=== PATIENT | female | born 1965 | race Caucasian/White ===

== ENCOUNTER 2025-07-07 08:29 | Outpatient (AMB) | payer MEDICAID, SELFPAY ==
--- NOTE | 2025-07-07 08:38 | ORTHONT_ITS ---
Vital signs 07/07/25 08:46 Height 1.55 m Height Method Measured Weight 73.255 kg Weight Measurement Method Standing Scale BMI 30.5 BP 110/73 Blood Pressure Source Automatic Cuff Blood Pressure Location Right Upper Arm Position Sitting Respiration 20 Pulse 73 Pulse Source Monitor Temp 97.6 F Temp Source Temporal Artery Scan Pulse Oximetry (%) 95 Oxygen Delivery Method Room Air Med/Allergies Allergies & Medications Allergies NKA* Allergy (Uncoded 07/07/25 08:47) Medication Reconciliation Trazodone Hcl 100 mg PO HS ##0 10/13/12 [History Confirmed 07/07/25] atorvastatin 40 mg tablet 40 mg PO QDAY 07/07/25 [History Confirmed 07/07/25] cariprazine 3 mg capsule (Vraylar) 3 mg PO QDAY 07/07/25 [History Confirmed 07/07/25] cyclobenzaprine 5 mg tablet 5 mg PO QHS 07/07/25 [History Confirmed 07/07/25] gabapentin 600 mg tablet 600 mg PO BID 07/07/25 [History Confirmed 07/07/25] ibuprofen 800 mg tablet 800 mg PO TID 07/07/25 [History Confirmed 07/07/25] lorazepam 1 mg tablet (Ativan) 1 mg PO BID PRN 07/07/25 [History Confirmed 07/07/25] Exam Exam Patient is in no acute distress and is cooperative with the examination today. Breathing is nonlabored. In no respiratory distress. Patient has no paraspinal tenderness. Spinal deformity cannot be appreciated. The gait of the patient is nonantalgic Bilateral extremities were evaluated and demonstrates sensation intact to light touch. Palpable pedal pulses are present. No significant edema is present. Bilateral knees were examined and the patient has full strength and range of motion.. The right hip was examined. Patient was able to flex to 90 degrees, adduct to 30 degrees, abduct to 40 degrees, internally rotate to 20 degrees, and externally rotate to 20 degrees. Patient has a negative logroll. Stinchfield is negative. The patient is nontender diffusely to touch. The left hip was examined. Patient was able to flex to 90 degrees, adduct to 30 degrees, abduct to 40 degrees, internally rotate to 20 degrees, and externally rotate to 20 degrees. Patient has a negative logroll. The stinchfield is negative. Assessment and Plan Problem List (1) Bilateral hip pain: Status: Acute Plan: Patient is a pleasant 60-year-old female with bilateral hip pain and bilateral hip arthritis status post right total hip replacement. She has persistent pain. We will get x-rays to see the current state of her hips. She has persistent pain in her back and thigh. She reports that when she is doing the grocery store she has significant relief of pain with a shopping cart and leaning forward. I do suspect she has spinal stenosis. Will order an MRI (2) Spinal stenosis: Status: Acute Office Procedures GNS Level of Care Nursing/Assessment Patient Status: Initial/New Patient Nursing Assessment/Reassesment: Medication Reconciliation, Orthostatic Vitals and Update PMH in EMR Coordination of Care: Complex Care and Chronic Disease 1-5, Education Complex Pt/Fam, Consent,records obtained, informed consent, Lab and Imaging orders, Results/Orders obtained and Staff clarify orders New Patient Charge New Patient Point Assignment: [id number] New Patient Point Charge: TACTICAL INTELLIGENCE OFFICER Level 3 (9002-4013) MA Intake Visit Data Collection New Patient or Established: New Patient (never been to [facility]) Reason for Visit:: OSTEOARTHRITIS LEFT HIP PAIN Seen by Clinical Staff ONLY (RN/MA): No Tractor Sweeper Driver Required: No PCP or OBGYN visit in last 3 months: Yes Hx Now: No Do You Feel Safe at Home: Yes Authorities Contacted: N/A Questionairres Past Medical History Past Medical History Have you ever been diagnosed with any of the following: Other Problems Blood Transfusions: No Subjective Visit Visit for: new patient and hip Immunization / Flu Flu Vaccine in the Last 12 Months: Yes Flu Vaccine Exclusion Criteria: Already Received History of Present Illness Chief complaint: OSTEOARTHRITIS LEFT HIP PAIN Date of injury / onset of symptoms: 10/2023 Patient is a pleasant 52-year-old female with bilateral hip pain. She had a right total hip replacement done 2 years ago in [place]. She reports she still has continued pain. She has not tried any conservative treatment. She is difficulty putting on socks and shoes. There is some pain on the lateral aspect of her hip on both sides Personal History Occupation: DISABLED Red flag PMH: none BMI Counceling provided: Yes Pain Pain level (0-10): 7 Pain location: buttock Pain quality: sharp, dull, aching, burning and tingling Pain timing: stairs Associated signs & symptoms: none Ambulatory data Ambulatory device: walker Walking distance (minutes): 10 Treatments Number of previous injections: 0 Improvement with previous injections: No Number of Physical Therapy sessions: 0 Improvement with PT: No Improvement with NSAIDS: yes Review of Systems Review of Systems: All systems negative unless otherwise noted in HPI.
[2025-07-07 08:46] VITALS: BP 110/73; PULSE 73; RESP 20; TEMP 36.4; O2SAT 95; BMI 30.5
--- NOTE | 2025-07-07 08:55 | XR_ITS ---
Examination: Bilateral hips, AP pelvis, 5 views Technique: AP, lateral views both hips, AP pelvis, 5 views Exam date and time: July 07, 2025 0912 hours INDICATIONS: Right hip pain one year FINDINGS: Total right hip arthroplasty. Satisfactory alignment Moderate left hip osteoarthritis No hip or pelvic fracture IMPRESSION: Total right hip arthroplasty with satisfactory alignment Moderate left hip osteoarthritis
== END 2025-07-07 09:30 | disposition home or self-care (01) ==
LOC: HODSRG 08:29
PROVIDERS: PCP Physician Assistant Medical; Referring Provider Physician Assistant Medical; Supervising Provider Orthopaedic Surgery Adult Reconstructive Orthopaedic Surgery; Visit Provider Orthopaedic Surgery Adult Reconstructive Orthopaedic Surgery
DX: M25.552 Pain in left hip (principal); M25.551 Pain in right hip; M16.0 Bilateral primary osteoarthritis of hip; Z96.641 Presence of right artificial hip joint; M48.00 Spinal stenosis, site unspecified
CPT/HCPCS: 73522; 99203; G0463

== ENCOUNTER → 2025-08-29 | Outpatient (CLI) | payer MEDICAID, SELFPAY ==
--- NOTE | 2025-08-29 09:00 | XR_ITS ---
Examination: MRI lumbar spine without contrast Date and time of exam: August 29, 2025, 10:11 AM, comparison June 24, 2013 INDICATIONS: Low back pain 7 years radiating to the legs with numbness in the toes Technique: Multiple MRI axial and sagittal sections lumbar spine. Sagittal T2-weighted images, TR 3500, TE 118 T1 weighted transverse sections, TR 688 T8.5, T2-weighted sagittal sections T1 weighted sagittal sections TR 621, TE 30 T2 axial sections, TR 4, 190, TE 84. Findings: Adequate alignment lumbar vertebral bodies on the lateral view No lumbar fracture. Normal marrow signal lumbar vertebral bodies. Diffuse lumbar disc desiccation No spondylolisthesis L5-S1 no disc protrusion L4-L5 3 mm left foraminal disc bulges no ganglionic compression L3-L4 no disc protrusion L2-L3 no disc protrusion L1-L2 no disc protrusion IMPRESSION: No lumbar fracture or significant lumbar disc narrowing No significant acquired spinal stenosis
== END | disposition home or self-care (01) ==
PROVIDERS: PCP Physician Assistant Medical; Referring Provider Orthopaedic Surgery Adult Reconstructive Orthopaedic Surgery; Visit Provider Orthopaedic Surgery Adult Reconstructive Orthopaedic Surgery
DX: M48.00 Spinal stenosis, site unspecified (principal)
CPT/HCPCS: 72148

== ENCOUNTER → 2025-09-08 | Outpatient (CLI) | payer MEDICAID, SELFPAY ==
--- NOTE | 2025-09-08 07:30 | XR_ITS ---
Examination: MRI brain without intravenous contrast. Date and time of exam: September 08, 2025, 0713 hours, comparison April 30, 2012 INDICATIONS: Increasing memory loss 1 year, amnesia Technique: Multiple axial and sagittal images of the brain obtained. Siemens high-resolution 1.5 Breanne short bore scanners utilized. Sagittal sections, T1-weighted, TR 500, TE 14, are performed. Axial sections proton-density and T2-weighted have been obtained. Inversion recovery axial images, TR 9, 260, TE 111, TI 2500. Diffusion weighted images, axial sections, TR 4800, TE 128, B value 1000 Axial sections, ADC map, TR 4800, TE 128 Findings: Enlargement of the sella turcica is not present. The optic chiasm and infundibular are not remarkable. Prepontine and interpeduncular cisterns are not enlarged. There is no localized enlargement of the medulla or umer. Fourth ventricle and cerebellar tonsils appear normal in position. No subacute area of hemorrhage density is seen. Mass in the cerebellopontine angle region is not evident. Globes symmetrical. Orbital musculature including medial lateral rectus muscles do not exhibit abnormality. Diffusion-weighted images demonstrate no focus of restricted diffusion. Increased white matter signal is present, multiple punctate foci increased signal in the cerebral white matter Bilateral mild mastoiditis Mass effect upon the ventricular system is not identified. Impression: Negative for acute hemorrhage, mass effect or midline shift No acute infarct Scattered punctate foci of increased signal in the white matter, differential would include accelerated chronic microvascular white matter change, demyelinating disease, clinical correlation advised Bilateral mastoiditis
== END | disposition home or self-care (01) ==
LOC: SMRI 06:54
PROVIDERS: Referring Provider Physician Assistant Medical; Visit Provider Physician Assistant Medical
DX: G93.9 Disorder of brain, unspecified (principal); H70.93 Unspecified mastoiditis, bilateral
CPT/HCPCS: 70551

== ENCOUNTER 2025-11-10 10:15 | Outpatient (AMB) | payer MEDICAID, SELFPAY ==
--- NOTE | 2025-11-10 10:37 | PD.ORTHCLVIS ---
Vital signs 11/10/25 10:38 Height 1.55 m Height Method Measured Weight 72.603 kg Weight Measurement Method Standing Scale BMI 30.2 BP 126/80 Blood Pressure Source Automatic Cuff Blood Pressure Location Left Upper Arm Position Sitting Respiration 19 Pulse 65 Pulse Source Monitor Temp 97.3 F Temp Source Temporal Artery Scan Pulse Oximetry (%) 95 Oxygen Delivery Method Room Air Med/Allergies Allergies & Medications Allergies NKA* Allergy (Uncoded 11/10/25 10:38) Medication Reconciliation Trazodone Hcl 100 mg PO HS ##0 10/13/12 [History Confirmed 11/10/25] atorvastatin 40 mg tablet 40 mg PO QDAY 07/07/25 [History Confirmed 11/10/25] cariprazine 3 mg capsule (Vraylar) 3 mg PO QDAY 07/07/25 [History Confirmed 11/10/25] cyclobenzaprine 5 mg tablet 5 mg PO QHS 07/07/25 [History Confirmed 11/10/25] gabapentin 600 mg tablet 600 mg PO BID 07/07/25 [History Confirmed 11/10/25] ibuprofen 800 mg tablet 800 mg PO TID 07/07/25 [History Confirmed 11/10/25] lorazepam 1 mg tablet (Ativan) 1 mg PO BID PRN 07/07/25 [History Confirmed 11/10/25] Exam Exam Patient is in no acute distress and is cooperative with the examination today. Breathing is nonlabored. In no respiratory distress. Patient has no paraspinal tenderness. Spinal deformity cannot be appreciated. The gait of the patient is nonantalgic Bilateral extremities were evaluated and demonstrates sensation intact to light touch. Palpable pedal pulses are present. No significant edema is present. Bilateral knees were examined and the patient has full strength and range of motion.. The right hip was examined. Patient was able to flex to 90 degrees, adduct to 30 degrees, abduct to 40 degrees, internally rotate to 20 degrees, and externally rotate to 20 degrees. Patient has a negative logroll. Stinchfield is negative. The patient is nontender diffusely to touch. The left hip was examined. Patient was able to flex to 90 degrees, adduct to 30 degrees, abduct to 40 degrees, internally rotate to 20 degrees, and externally rotate to 20 degrees. Patient has a negative logroll. The stinchfield is negative. MRI demonstrates minimal spinal stenosis. She also has a left hip x-ray that demonstrates moderate to severe arthritis of the left hip Assessment and Plan Problem List (1) Bilateral hip pain: Status: Acute Plan: Patient is a pleasant 60-year-old female with bilateral hip pain and bilateral hip arthritis status post right total hip replacement. She has persistent pain. X-rays demonstrate left hip arthritis of significant severity. She would like to start with conservative treatment and would like a cortisone injection of her left hip We will order a left hip intra-articular cortisone injection (2) Spinal stenosis: Status: Acute Office Procedures GNS Level of Care Nursing/Assessment Patient Status: Established Patient Nursing Assessment/Reassesment: Medication Reconciliation, Update PMH in EMR and Vital Signs Coordination of Care: Complex Care and Chronic Disease 1-5, Education Complex Pt/Fam, Consent,records obtained, informed consent, Results/Orders obtained and Staff clarify orders Established Patient Charge Established Patient Point Assignment: 95 Established Patient Point Charge: Level 3 (80-115) MA Intake Visit Data Collection Reason for Visit:: OSTEOARTHRITIS LEFT HIP PAIN Seen by Clinical Staff ONLY (RN/MA): No Associate Accountant Required: No PCP or OBGYN visit in last 3 months: Yes Hx Now: No Do You Feel Safe at Home: Yes Authorities Contacted: N/A Questionairres Past Medical History Past Medical History Have you ever been diagnosed with any of the following: Neurological Problems Cerebrovascular Accident (CVA): No Transient Ischemic Attacks (TIA): No Dementia: No Alzheimer's Disease: No Parkinson's Disease: No Brain Tumor: No Meningitis: No Seizures: No Epilepsy: No Multiple Sclerosis: No Cerebral Palsy: No Amyotrophic Lateral Sclerosis (ALS/Liliya Gehrig's): No Guillain-Greenvale Syndrome: No Spina Bifida: No Paralysis: No Peripheral Neuropathy: No Nina's Palsy: No Subdural Hematoma: No Migraine: No Head Trauma: No Spinal Cord Injury: No Traumatic Brain Injury: No Cardiology Problems Myocardial Infarction: No Cardiac Arrhythmia: No Atrial Fibrillation: No Angina: No Heart Murmur: No Coronary Artery Disease: No Atherosclerotic Heart Disease: No Peripheral Vascular Disease: No Hypercholesterolemia: No Aneurysm: No Congestive Heart Failure: No Congenital Heart Disease: No Valvular Heart Disease: No Rheumatic Fever: No Cardiomyopathy: No Edema: No Pericarditis: No Cellulitis: No Deep Vein Thrombosis: No Hypertension: No Hypotension: No Varicose Veins: No Respiratory Problems Chronic Obstructive Pulmonary Disease (COPD): No Asthma: No Bronchitis: No Emphysema: No Pneumonia: No Pulmonary Fibrosis: No Tuberculosis: No Pulmonary Embolism: No Pulmonary Edema: No Sleep Apnea: No CPAP Dependent: No Respiratory Aspiration: No Dyspnea: No Orthopnea: No Hx Cough: No Cough: No Wheezing: No Chest Deformities: No Smoking: No Smoking Cessation Counseling: No Smoking Exposure: No Tobacco Use: No Clubbing: No Exposure to Respiratory Irritants: No Intubation: No Stomache/Intestinal Problems Liver Cancer: No Hepatitis: No Cirrhosis: No Pancreatic Cancer: No Pancreatitis: No Celiac Disease: No Gall Bladder Disease: No Gastrointestinal Bleed: No Esophageal Varices: No Saucedo's Esophagus: No Colitis: No Ulcerative Colitis: No Diverticulitis: No Diverticulosis: No Ulcer: No Colorectal Cancer: No Irritable Bowel: No Crohn's Disease: No Obstructive Bowel: No Hiatal Hernia: No Hemorrhoids: No Gastroesophageal Reflux Disease: No Polyps: No Obesity: No Genital/Urinary Problems Chronic Kidney Disease: No Renal Disease: No Kidney Stones: No Polycystic Kidney Disease: No Neurogenic Bladder: No Inguinal Hernia: No Dialysis: No Reproductive Problems Breast Cancer: No Endometriosis: No Fibroids: No Genital Herpes: No Gonorrhea: No Pelvic Inflammatory Disease: No Polycystic Ovarian Syndrome: No Previous Pregnancies: No Syphilis: No Uterine Prolapse: No Musculoskeletal Problems Muscular Dystrophy: No Myasthenia Gravis: No Marfan's Syndrome: No Bone Cancer: No Arthritis: No Rheumatoid Arthritis: No Osteoporosis: No Degenerative Disk Disease: No Gout: No Scoliosis: No Carpal Tunnel Syndrome: No Fibromyalgia: No Fractures: No Degenerative Joint Disease: No Osteomyelitis: No Poliovirus: No Head,Eye,Nose,Throat Problems Cataracts: No Glaucoma: No Blind: No Retinal Detachment: No Macular Degeneration: No Chronic Ear Infections: No Deafness: No Eye Prosthesis: No Endocrine Problems Diabetes Mellitus Type 1: No Diabetes Mellitus Type 2: No Hypoglycemia: No Joe's Syndrome: No Carlton's Disease: No Hyperthyroidism: No Hypothyroidism: No Thyroid Cancer: No Parathyroid Disease: No Pituitary Disease: No Systemic Lupus Erythematosus: No Syndrome of Inappropriate Antidiuretic Hormone: No Adrenal Disease: No Graves' Disease: No Blood Problems Anemia: No Leukemia: No Hemophilia: No Thalassemia: No Sickle Cell Disease: No Clotting Problems: No Psychologic Problems Schizophrenia: No Recreational Drug Use: No Bipolar Disorder: No Depression: No Anxiety: No Behavior Problems: No Self-Mutilation: No Attention Deficit Disorder: No Attention Deficit Hyperactivity Disorder: No Depression: No Post Traumatic Stress Disorder: No Eating Disorder: No Other Problems Blood Transfusions: No Subjective Visit Visit for: follow up visit and MRI (RESULTS) Immunization / Flu Flu Vaccine in the Last 12 Months: Yes Flu Vaccine Exclusion Criteria: Already Received History of Present Illness Chief complaint: OSTEOARTHRITIS LEFT HIP PAIN Date of injury / onset of symptoms: 10/2023 Patient is a pleasant 52-year-old female with bilateral hip pain. She had a right total hip replacement done 2 years ago in [place]. She reports she still has continued pain. She has not tried any conservative treatment. She is difficulty putting on socks and shoes. she is having groin pain on the left side. Personal History Occupation: DISABLED Red flag PMH: none BMI Counceling provided: Yes Pain Pain level (0-10): 7 Pain location: buttock Pain quality: sharp, dull, aching, burning and tingling Pain timing: stairs Associated signs & symptoms: none Ambulatory data Ambulatory device: walker Walking distance (minutes): 10 Treatments Number of previous injections: 0 Improvement with previous injections: No Number of Physical Therapy sessions: 0 Improvement with PT: No Improvement with NSAIDS: yes Review of Systems Review of Systems: All systems negative unless otherwise noted in HPI.
[2025-11-10 10:38] VITALS: BP 126/80; PULSE 65; RESP 19; TEMP 36.3; O2SAT 95; BMI 30.2
== END 2025-11-10 10:52 | disposition home or self-care (01) ==
LOC: HODSRG 10:15
PROVIDERS: Supervising Provider Orthopaedic Surgery Adult Reconstructive Orthopaedic Surgery; Visit Provider Orthopaedic Surgery Adult Reconstructive Orthopaedic Surgery
DX: M16.0 Bilateral primary osteoarthritis of hip (principal); Z96.641 Presence of right artificial hip joint; M48.00 Spinal stenosis, site unspecified
CPT/HCPCS: 99213; G0463